=== PATIENT | female | born 1965 | race Caucasian/White ===

== ENCOUNTER 2019-12-15 15:43 | Outpatient (REF) | payer SELFPAY ==
[2019-12-15 16:58] LABS: Chol HDL Ratio 3.36 mg/dL (0.0-4.40); Cholesterol 249 mg/dL (0-200); Glucose 262 mg/dL (65-115); HDL Cholesterol 74 mg/dL (60-100); LDL Cholesterol Calculated 149 mg/dL (50-129); LDL HDL Ratio 2.01 RATIO (0.00-3.22); Triglycerides 132 mg/dL (0-150)
[2019-12-15 17:56] LABS: Estmated Average Glucose 192; Hemoglobin A1C 8.3 % (4.0-6.0)
== END 2019-12-15 15:44 | disposition home or self-care (01) ==
LOC: LAB 15:43
PROVIDERS: Visit Provider Dermatology
DX: Z13.9 Encounter for screening, unspecified (principal)
CPT/HCPCS: 80061; 82947; 83036

== ENCOUNTER → 2020-08-16 08:32 | Outpatient (BNVA) | payer OTHER, SELFPAY | PROVIDERS: Family Provider Nurse Practitioner; PCP Nurse Practitioner; Visit Provider Nurse Practitioner | DX: E04.9 Nontoxic goiter, unspecified (principal); E11.65 Type 2 diabetes mellitus with hyperglycemia; E78.5 Hyperlipidemia, unspecified; Z79.4 Long term (current) use of insulin | CPT/HCPCS: 80053; 80061; 83036; 84443 ==

== ENCOUNTER 2020-09-21 10:46 | Outpatient (CLI) | payer OTHER, SELFPAY ==
--- NOTE | 2020-09-21 11:00 | US_ITS ---
WS: [id number] ULTRASOUND THYROID TECHNIQUE: Ultrasound of the thyroid. CLINICAL INFORMATION: E04.9 - Nontoxic goiter, unspecified COMPARISON: None. FINDINGS: Thyroid: Thyroid goiter with right greater than left lobe enlargement. Complex cystic and solid nodule right thyroid measuring 2.6 x 2.7 x 3.1 CM. Internal echogenic debris . Mixed echogenicity cystic and solid subcentimeter left thyroid nodules. 3 lesions in total with the l argest measuring 5 to 6 mm. Right thyroid lobe: 4.9 cm x 2.8 cm x 2.7 cm Left thyroid lobe: 4.8 cm x 1.6 cm x 1.6 cm. Isthmus: 0.3 mm. Cervical lymphadenopathy: Incidental lymph nodes US/US thyroid [id number] IMPRESSION: 1. Large complex right thyroid cystic and solid nodule measuring 2.6 x 2.7 x 3 .1 CM. Recommend further evaluation with FNA. 2. Smaller subcentimeter right thyroid nodules. Recommend 12 month follow-up.
== END 2020-09-21 10:47 | disposition home or self-care (01) ==
LOC: US 10:48
PROVIDERS: PCP Nurse Practitioner; Visit Provider Nurse Practitioner
DX: E04.9 Nontoxic goiter, unspecified (principal); E04.1 Nontoxic single thyroid nodule
CPT/HCPCS: 76536

== ENCOUNTER 2021-10-22 11:20 | Outpatient (CLI) | payer OTHER, SELFPAY ==
[2021-10-22 12:08] VITALS: BP 132/71; PULSE 80; RESP 18; TEMP 36.8; O2SAT 98; BMI 35.3
[2021-10-22 12:22] VITALS: BP 121/73; PULSE 71; RESP 16; TEMP 37.2; O2SAT 93
[2021-10-22 13:04] VITALS: BP 122/80; PULSE 74; RESP 18; TEMP 36.7; O2SAT 94
== END 2021-10-22 11:21 | disposition home or self-care (01) ==
LOC: OPS 11:30
PROVIDERS: PCP Nurse Practitioner; Visit Provider Nurse Practitioner
DX: U07.1 COVID-19 (principal)
CPT/HCPCS: 96365

== ENCOUNTER → 2022-02-13 09:24 | Outpatient (BNVA) | payer OTHER, SELFPAY | PROVIDERS: PCP Nurse Practitioner; Visit Provider Nurse Practitioner | DX: E11.65 Type 2 diabetes mellitus with hyperglycemia (principal); Z79.4 Long term (current) use of insulin; R10.13 Epigastric pain | CPT/HCPCS: 81000 ==

== ENCOUNTER → 2024-11-23 16:27 | Outpatient (BNVA) | payer BC, SELFPAY | PROVIDERS: PCP Nurse Practitioner; Visit Provider Nurse Practitioner | DX: J10.1 Influenza due to other identified influenza virus with other respiratory manifestations (principal) | CPT/HCPCS: 87400; 87426 ==